=== PATIENT | female | born 1985 | race African-American/Black ===

== ENCOUNTER 2018-06-19 14:11 | Emergency (ER) | payer OTHER ==
[~2018-06-19] VITALS: Ht 160 cm; Wt 57.2 kg
[2018-06-19] MEDS ORDERED: DICY20TA3 PO (14:43)
[2018-06-19] MEDS ORDERED: ONDA4TAB7 PO (14:43)
--- NOTE | 2018-06-19 14:43 | PHYS DOC ---
Past History Past Medical History: Other Additional Past Medical Histor: chronic low back pain Smoking: Cigar Alcohol Use: None Drug Use: None Adult General Chief Complaint Chief Complaint: NAUSEA/VOMITING/DIARRHEA HPI HPI Patient is a 33-year-old female who presents with nausea, vomiting, and diarrhea for the past 4 days. 5 days prior to this her daughter had been diagnosed with a flulike illness at [facility]. Patient denies any recent deployment, she is in the [employer], no blood in the stool or emesis. She is able to tolerate oral intake, liquids, but it feels like it goes right through her. 3 days ago she had a root canal and has not been able to tolerate that pain medicine or the antibiotics provided from the root canal.[] Review of Systems Review of Systems Constitutional: Denies fever or chills [] Eyes: Denies change in visual acuity, redness, or eye pain [] HENT: Denies nasal congestion or sore throat [] Respiratory: Denies cough or shortness of breath [] Cardiovascular: No additional information not addressed in HPI [] GI: Denies abdominal pain, nausea, vomiting, bloody stools or diarrhea [] : Denies dysuria or hematuria, denies any chance of being [] Musculoskeletal: Denies back pain or joint pain [] Integument: Denies rash or skin lesions [] Neurologic: Denies headache, focal weakness or sensory changes [] Endocrine: Denies polyuria or polydipsia [] All other systems were reviewed and found to be within normal limits, except as documented in this note. Current Medications Current Medications Current Medications Medications (Trade) Dose Ordered Sig/[facility] Start Time Stop Time Status Last Admin Dose Admin Dicyclomine HCl (Bentyl) 20 mg 1X ONCE 06/19/18 14:45 06/19/18 14:46 UNV Ondansetron HCl (Zofran Odt) 4 mg 1X ONCE 06/19/18 14:45 06/19/18 14:46 UNV Allergies Allergies Allergies Coded Allergies Type Severity Reaction Last Updated Verified latex Allergy Unknown 06/19/18 Yes Physical Exam Physical Exam Constitutional: Well developed, well nourished, no acute distress, non-toxic appearance. [] HENT: Normocephalic, atraumatic, bilateral external ears normal, oropharynx moist, no oral exudates, nose normal. [] Eyes: PERRLA, EOMI, conjunctiva normal, no discharge. [] Neck: Normal range of motion, no tenderness, supple, no stridor. [] Cardiovascular:Heart rate regular rhythm, no murmur [] Lungs & Thorax: Bilateral breath sounds clear to auscultation [] Abdomen: Bowel sounds normal, soft, no tenderness, no masses, no pulsatile masses. [] Skin: Warm, dry, no erythema, no rash. [] Back: No tenderness, no CVA tenderness. [] Extremities: No tenderness, no cyanosis, no clubbing, ROM intact, no edema. [] Neurologic: Alert and oriented X 3, normal motor function, normal sensory function, no focal deficits noted. [] Psychologic: Affect normal, judgement normal, mood normal. [] EKG EKG [] Radiology/Procedures Radiology/Procedures [] Course & Med Decision Making Course & Med Decision Making Pertinent Labs and Imaging studies reviewed. (See chart for details) Medical decision making: Given that the symptoms of been going on for 4 days in the face of normal heart rate and moist mucous membranes, do not see any evidence of an indication for IV fluids at this point. While this may be an influenza-like illness or even influenza, we will forego testing because Tamiflu is only indicated within the first 48 hours after symptoms have started. [] Dragon Disclaimer Dragon Disclaimer This electronic medical record was generated, in whole or in part, using a voice recognition dictation system. Departure Departure: Impression: Primary Impression: Nausea vomiting and diarrhea Disposition: 01 HOME, SELF-CARE Condition: IMPROVED Referrals: PEGGY SAHNI PA-C (PCP) Follow-up in 2 days Patient Instructions: Diet for Diarrhea, Adult, Nausea and Vomiting Additional Instructions: Drink plenty of fluids, frequent small sips. No fatty foods, no milk, and no pepper for the next 48 hours. For the next 48 hours eat a diet rich in carbohydrates with foods such as bananas, rice, applesauce, and toast. Follow- up with your regular doctor in 2 days. Return to the ER if any blood in the stool or emesis, unable to tolerate liquids, or any other concerns. Scripts Dicyclomine Hcl (DICYCLOMINE HCL) 20 Mg Tablet 1 TAB PO TID for ABDOMINAL PAIN AND CRAMPING, #30 TAB 0 Refills Prov: ARIELLE SCHNEIDER DO 06/19/18 Ondansetron Hcl (ZOFRAN) 4 Mg Tablet 1 TAB PO Q6HRS for nausea or vomiting, #20 TAB Prov: ARIELLE SCHNEIDER DO 06/19/18 ARIELLE SCHNEIDER DO Jun 19, 2018 14:43
[2018-06-19 14:45] VITALS: BP 114/74
[2018-06-19] MEDS ORDERED: DICYCLOMINE HCL 20 MG TABLET PO ONE (14:45)
[2018-06-19] MEDS ORDERED: ONDANSETRON ODT 4 MG TAB.RAPDIS PO ONE (14:45)
== END 2018-06-19 14:46 | disposition home or self-care (01) ==
LOC: ER 14:11
DX: R11.2 Nausea with vomiting, unspecified (principal); R19.7 Diarrhea, unspecified; G89.29 Other chronic pain; M54.5 Low back pain; F17.210 Nicotine dependence, cigarettes, uncomplicated; Z91.040 Latex allergy status
CPT/HCPCS: 99283; Q0162

== ENCOUNTER 2019-05-29 09:19 | Emergency (ER) | payer OTHER ==
[~2019-05-29] VITALS: Ht 160 cm; Wt 61.2 kg
[~2019-05-29 09:19] MED LIST: DICY20TA3 PO; ONDA4TAB7 PO
[2019-05-29 09:20] VITALS: BP 126/70
--- NOTE | 2019-05-29 10:06 | RAD ---
EXAM: CHEST PA LATERAL INDICATION: Cough. TECHNIQUE: PA and lateral views COMPARISON: None FINDINGS: The heart size is normal. The great vessels appear unremarkable. There is no hilar or mediastinal mass. The lungs are clear. There is no pleural effusion or pneumothorax. There are no significant osseous abnormalities. IMPRESSION: No active cardiopulmonary disease. Electronically signed by: Ashok Osborne MD (05/29/2019 10:03 AM) [id number]
[2019-05-29] MEDS ORDERED: AZIT250T PO (10:16)
--- NOTE | 2019-05-29 10:16 | PHYS DOC ---
Past History Past Medical History: Other Additional Past Medical Histor: chronic low back pain Past Surgical History: No Surgical History Smoking: Cigar Alcohol Use: None Drug Use: None Adult General Chief Complaint Chief Complaint: COUGH HPI HPI Patient is a 33-year-old female who presents with complaint of cough and chest congestion for the last few days. Patient states that she is feeling tired and states that she thinks is because she hasn't been able to sleep at night due to the cough. She denies any fever. She denies any chest pain or shortness of breath but does state that she gets a little bit more winded when she goes out and runs during PT.[] Review of Systems Review of Systems Constitutional: Denies fever or chills [] Respiratory: Complains of cough without shortness of breath [] Cardiovascular: No additional information not addressed in HPI [] GI: Denies abdominal pain, nausea, vomiting, bloody stools or diarrhea [] Integument: Denies rash or skin lesions [] Neurologic: Denies headache, focal weakness or sensory changes [] Allergies Allergies Allergies Coded Allergies Type Severity Reaction Last Updated Verified latex Allergy Unknown 06/19/18 Yes Physical Exam Physical Exam Constitutional: Well developed, well nourished, no acute distress, non-toxic appearance. [] Neck: Normal range of motion, no tenderness, supple, no stridor. [] Cardiovascular:Heart rate regular rhythm, no murmur [] Lungs & Thorax: Bilateral breath sounds clear to auscultation [] Extremities: No tenderness, no cyanosis, no clubbing, ROM intact, no edema. [] Neurologic: Alert and oriented X 3, no focal deficits noted. [] EKG EKG [] Radiology/Procedures Radiology/Procedures [] Course & Med Decision Making Course & Med Decision Making Pertinent Labs and Imaging studies reviewed. (See chart for details) [] Dragon Disclaimer Dragon Disclaimer This electronic medical record was generated, in whole or in part, using a voice recognition dictation system. Departure Departure: Impression: Primary Impression: Acute bronchitis Disposition: 01 HOME, SELF-CARE Condition: STABLE Referrals: PEGGY SAHNI PA-C (PCP) Patient Instructions: Acute Bronchitis Scripts Azithromycin (ZITHROMAX) 250 Mg Tablet 1 PKG PO UD for infection, #6 TAB Prov: KAYLAH BHATIA Jr. DO 3/17/20 Problem Qualifiers Primary Impression: Acute bronchitis Bronchitis organism: unspecified organism Qualified Codes: J20.9 - Acute bronchitis, unspecified KAYLAH BHATIA Jr. DO May 29, 2019 10:16
== END 2019-05-29 10:24 | disposition home or self-care (01) ==
LOC: ER 09:19
DX: J20.9 Acute bronchitis, unspecified (principal); F17.210 Nicotine dependence, cigarettes, uncomplicated; G89.29 Other chronic pain; M54.5 Low back pain; Z91.040 Latex allergy status
CPT/HCPCS: 71046; 99283